=== PATIENT | female | born 1995 ===

== ENCOUNTER 2024-06-18 12:21 | Inpatient (IN) | payer MEDICAID ==
[2024-06-18] MEDS ORDERED: Terbutaline 1 MG/ML SDV SUBCUT PRN (13:18)
[2024-06-18] MEDS ORDERED: Carboprost Tromethamine 250 MCG/1 mL Vial IM PRN (13:18)
[2024-06-18] MEDS ORDERED: Water For Irrigation,Sterile 1,000 ML Container IRR PRN (13:18)
[2024-06-18] MEDS ORDERED: Misoprostol 200 MCG Tab RECTAL PRN (13:18)
[2024-06-18] MEDS ORDERED: Sodium Chloride 0.9% 2.5 ML Syringe FLUSH PRN (13:18)
[2024-06-18] MEDS ORDERED: Butorphanol 2 MG/ML SDV IVPUSH PRN (13:18)
[2024-06-18] MEDS ORDERED: Sodium Chloride 0.9% 20 ML SDV IV PRN (13:18)
[2024-06-18] MEDS ORDERED: Lidocaine 1% 50 ML MDV INJECT PRN (13:18)
[2024-06-18] MEDS ORDERED: Tranexamic Acid in NACL,ISO-OS 1,000 MG in Premix Bag 1 BAG IV PRN (13:18)
[2024-06-18] MEDS ORDERED: Misoprostol 200 MCG Tab PO PRN (13:18)
[2024-06-18] MEDS ORDERED: Sodium Chloride 0.9% 10 ML Syringe FLUSH PRN (13:18)
[2024-06-18] MEDS ORDERED: Methylergonovine 0.2 MG/1 ML Amp IM PRN (13:18)
[2024-06-18] MEDS ORDERED: Ondansetron 4 MG/2 ML SDV IVPUSH PRN (13:18)
[2024-06-18] MEDS ORDERED: Misoprostol 25 MCG (1/4 of 100 MCG) Tab VAG PRN ×2 (13:18)
[2024-06-18] MEDS ORDERED: Oxytocin/0.9 % Sodium Chloride 30 UNIT/500 ML BAG IV SCH (13:30)
[2024-06-18] MEDS ORDERED: Phenylephrine HCl In 0.9% NaCl 1 MG/10 ML Syringe IVPUSH PRN (14:12)
[2024-06-18] MEDS ORDERED: ePHEDrine 50 MG/ML SDV IVPUSH PRN (14:12)
[2024-06-18] MEDS ORDERED: dexmedeTOMIDine HCl 200 MCG/2 ML SDV EPIDUR SCH (14:15)
[2024-06-18 14:19] LABS: HEMATOCRIT 35.4 % (37.0-47.0); HEMOGLOBIN 11.6 g/dL (12.0-16.0); MEAN CORPUSCULAR HEMOGLOBIN 26.4 pg (28.0-32.0); MEAN CORPUSCULAR HGB CONC 32.8 g/dL (32.0-36.0); MEAN CORPUSCULAR VOLUME 80.5 fL (83.0-99.0); MEAN PLATELET VOLUME 11.9 fL (9.4-12.3); PLATELET COUNT,PLT 250 K/uL (150-400)
[2024-06-18] MEDS ORDERED: Glucagon,Human Recombinant 1 MG Vial IM PRN (16:53)
[2024-06-18] MEDS ORDERED: 50% Dextrose in Water 50 ML Syringe IVPUSH PRN (16:53)
[2024-06-18] MEDS ORDERED: Insulin Regular in 0.9 % NACL 100 ML IV SCH (16:54)
[2024-06-18] MEDS ORDERED: Lactated Ringers 1,000 ML IV SCH (17:15)
[2024-06-18] MEDS: Lactated Ringers 1,000 ML IV SCH (21:04)
[2024-06-18] MEDS: Oxytocin/0.9 % Sodium Chloride 30 UNIT/500 ML BAG IV SCH (21:15)
[2024-06-18] MEDS: Ropivacaine HCl/PF 400 MG in Premix Bag 1 BAG EPIDUR SCH (22:05)
[2024-06-19] MEDS ORDERED: Ibuprofen 800 MG Tab PO PRN (05:57)
[2024-06-19] MEDS ORDERED: Lanolin 100% Cream 7 GM Tube TOP PRN (05:57)
[2024-06-19] MEDS ORDERED: Docusate Sodium 100 MG Cap PO PRN (05:57)
[2024-06-19 07:12] LABS: PH,UMBILICAL ARTERIAL 7.22 (7.18-7.38); PH,UMBILICAL VENOUS 7.333 (7.25-7.45)
[2024-06-19] MEDS: Witch Hazel Medicated Pads 40/Jar TOP PRN (07:28)
[2024-06-19] MEDS: Benzocaine/Menthol 20%-0.5% Spray 78 GM Cannister TOP PRN (07:28)
[2024-06-20 06:38] LABS: HEMATOCRIT 30.5 % (37.0-47.0); HEMOGLOBIN 9.9 g/dL (12.0-16.0)
[2024-06-20 07:07] LABS: CALCIUM 8.5 mg/dL (8.5-10.1); CARBON DIOXIDE,CO2 20.5 mmol/L (21.0-32.0); CREATININE 0.5 mg/dL (0.6-1.0); EST CRCL DRUG DOSING (CG) 132.49 mL/min; POTASSIUM,K 3.7 mmol/L (3.5-5.1)
[2024-06-20] MEDS ORDERED: Calcium Gluconate 10% 1 GM/10 ML SDV IV PRN (08:12)
[2024-06-20] MEDS ORDERED: Sodium Chloride 0.9% 20 ML SDV IV PRN (08:12)
[2024-06-20] MEDS ORDERED: Sodium Chloride 0.9% 10 ML Syringe FLUSH PRN (08:12)
[2024-06-20] MEDS ORDERED: Sodium Chloride 0.9% 2.5 ML Syringe FLUSH PRN (08:12)
[2024-06-20] MEDS: Labetalol 100 MG/20 ML MDV IVPUSH PRN (08:36)
[2024-06-20 08:38] LABS: HEMATOCRIT 30.9 % (37.0-47.0); HEMOGLOBIN 10.2 g/dL (12.0-16.0); MEAN CORPUSCULAR HEMOGLOBIN 26.7 pg (28.0-32.0); MEAN CORPUSCULAR VOLUME 80.9 fL (83.0-99.0); MEAN PLATELET VOLUME 11.2 fL (9.4-12.3); PLATELET COUNT,PLT 202 K/uL (150-400); RED BLOOD CELL COUNT 3.82 M/uL (4.10-5.30); WHITE BLOOD CELL COUNT,WBC 9.73 K/uL (3.9-11.3)
[2024-06-20] MEDS: Magnesium Sulf/Wat 4 GM/100 mL 4 GM in Premix Bag 1 BAG IV ONE (08:53)
[2024-06-20] MEDS: Lactated Ringers 1,000 ML IV SCH (08:59)
[2024-06-20 09:15] LABS: A/G RATIO 0.5 (0.9-1.6); ALBUMIN 2.1 g/dL (3.4-5.0); BILIRUBIN TOTAL 0.2 mg/dL (0.2-1.0); CALCIUM 8.5 mg/dL (8.5-10.1); CARBON DIOXIDE,CO2 21.4 mmol/L (21.0-32.0); CREATININE 0.6 mg/dL (0.6-1.0); EST CRCL DRUG DOSING (CG) 110.4 mL/min; MAGNESIUM 1.6 mg/dL (1.8-2.4); POTASSIUM,K 3.6 mmol/L (3.5-5.1); PROTEIN TOTAL,TP 6.3 g/dL (6.4-8.2)
[2024-06-20] MEDS: Magnesium Sulf/Wat 20 GM/500mL 20 GM/500 ML BAG IV SCH (09:18)
[2024-06-20] MEDS: Acetaminophen 500 MG Tab PO PRN (17:48)
[2024-06-20] MEDS: NIFEdipine 30 MG Tab.ER PO SCH (21:24)
== END 2024-06-21 18:21 | disposition home or self-care (01) | DRG 807 ==
LOC: MW.OBCHECK 12:21 → MW.OB 12:23 → MW.OBCHECK 13:19 → OBSVTOIN 06-19 05:26 → MW.OB 06-19 12:22
PROVIDERS: ADMIT Obstetrics & Gynecology; ATTEND Obstetrics & Gynecology
PROC: 10E0XZZ Delivery of Products of Conception, External Approach (ICD-10-PCS; principal; 2024-06-19)
PROC: 10907ZC Drainage of Amniotic Fluid, Therapeutic from Products of Conception, Via Natural or Artificial Opening (ICD-10-PCS; 2024-06-19)
PROC: 3E0R3BZ Introduction of Anesthetic Agent into Spinal Canal, Percutaneous Approach (ICD-10-PCS; 2024-06-19)
PROC: 00HU33Z Insertion of Infusion Device into Spinal Canal, Percutaneous Approach (ICD-10-PCS; 2024-06-19)
DX: O24.424 Gestational diabetes mellitus in childbirth, insulin controlled (principal); Z37.0 Single live birth; Z3A.39 39 weeks gestation of pregnancy; O16.5 Unspecified maternal hypertension, complicating the puerperium
CPT/HCPCS: 01967; 36415; 51702; 59025; 80048; 80053; 82803; 82947; 83735; 84550; 85014; 85018; 85027; 86592; 86850; 86900; 86901; A9270-GY; J1920; J2590; J2795; J3475; J7120